=== PATIENT | female | born 1990 | race African-American/Black ===

== ENCOUNTER 2019-02-17 07:33 | Emergency (ER) | payer SELFPAY ==
[~2019-02-17] VITALS: Ht 165.1 cm; Wt 68.0 kg
[2019-02-17 07:42] VITALS: BP 111/66
[2019-02-17] MEDS ORDERED: IBUPROFEN 800MG TABLET PO ONE (09:45)
== END 2019-02-17 09:51 | disposition home or self-care (01) ==
LOC: ER 07:33
DX: S93.601A Unspecified sprain of right foot, initial encounter (principal); X50.1XXA Overexertion from prolonged static or awkward postures, initial encounter; Y93.89 Activity, other specified; Y92.89 Other specified places as the place of occurrence of the external cause; Y99.8 Other external cause status
CPT/HCPCS: 73610; 73630; 99283